=== PATIENT | female | born 1995 | race African-American/Black ===

== ENCOUNTER 2020-11-13 09:44 | Emergency (ER) | payer OTHER, SELFPAY ==
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
[2020-11-13 09:51] VITALS: BP 108/63; PULSE 78; RESP 16; TEMP 36.5; O2SAT 100; BMI 23.3
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
== END 2020-11-13 11:45 | disposition home or self-care (01) ==
PROVIDERS: Emergency Provider Student in an Organized Health Care Education/Training Program
DX: S93.501A Unspecified sprain of right great toe, initial encounter (principal); W51.XXXA Accidental striking against or bumped into by another person, initial encounter; Y93.71 Activity, boxing; Y92.9 Unspecified place or not applicable; Y99.9 Unspecified external cause status
CPT/HCPCS: 73630; 99283

== ENCOUNTER 2021-01-06 17:43 | Emergency (ER) | payer OTHER, SELFPAY ==
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
[2021-01-06 17:49] VITALS: BP 116/70; PULSE 86; RESP 18; TEMP 36.7; O2SAT 99; BMI 21.9
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
[2021-01-06] MEDS: Acetaminophen 325 MG TABLET 975 MG PO (18:49)
[2021-01-06] MEDS: Tetracaine HCl/PF 0.5% Oph Sol 4 ML DROPS 1 DROP EYE-LEFT (18:51)
[2021-01-06] MEDS: Fluorescein Sodium STRIP 1 STRIP EYE-LEFT (18:53)
== END 2021-01-06 20:29 | disposition home or self-care (01) ==
PROVIDERS: Emergency Provider Emergency Medicine Emergency Medical Services
DX: S05.12XA Contusion of eyeball and orbital tissues, left eye, initial encounter (principal); S09.90XA Unspecified injury of head, initial encounter; Y04.2XXA Assault by strike against or bumped into by another person, initial encounter; Y93.9 Activity, unspecified; Y92.9 Unspecified place or not applicable; Y99.9 Unspecified external cause status
CPT/HCPCS: 70450; 70486; 99284